=== PATIENT | female | born 1960 | race Caucasian/White ===

== ENCOUNTER → 2017-02-10 | Outpatient (REF) | LOC: WSOH 08:00 | DX: Z02.89 Encounter for other administrative examinations (principal) ==

== ENCOUNTER → 2017-09-07 | Outpatient (CLI) | payer BC | LOC: MC.RAD 08:19 | DX: Z12.31 Encounter for screening mammogram for malignant neoplasm of breast (principal) ==

== ENCOUNTER → 2018-03-29 | Outpatient (CLI) | payer BC | LOC: COL.RAD 12:14 | DX: R16.0 Hepatomegaly, not elsewhere classified (principal) | CPT/HCPCS: A9585 ==

== ENCOUNTER → 2019-10-12 | Outpatient (CLI) | payer BC | LOC: MC.RAD 10:11 | DX: Z12.31 Encounter for screening mammogram for malignant neoplasm of breast (principal) ==

== ENCOUNTER 2020-01-26 14:45 | Outpatient (RCR) | payer BC | END 2020-03-21 | disposition home or self-care (01) | LOC: MKS.ESL.OT | DX: M65.331 Trigger finger, right middle finger (principal); G56.01 Carpal tunnel syndrome, right upper limb ==

== ENCOUNTER → 2020-10-16 | Outpatient (CLI) | payer SELFPAY | LOC: MC.RAD 13:35 | DX: Z12.31 Encounter for screening mammogram for malignant neoplasm of breast (principal) ==

== ENCOUNTER 2021-03-22 09:00 | Outpatient (RCR) | payer BC | END 2021-03-24 | disposition still patient (30) | LOC: WSOT | DX: G56.01 Carpal tunnel syndrome, right upper limb (principal); M65.331 Trigger finger, right middle finger ==

== ENCOUNTER 2021-04-30 09:00 | Outpatient (RCR) | payer BC | END 2021-06-24 | disposition home or self-care (01) | LOC: WSOT | DX: Z47.89 Encounter for other orthopedic aftercare (principal); M65.331 Trigger finger, right middle finger ==

== ENCOUNTER 2021-06-14 09:30 | Outpatient (RCR) | payer BC | END 2021-08-14 | disposition home or self-care (01) | LOC: PT.GENESIS | DX: M22.42 Chondromalacia patellae, left knee (principal) ==

== ENCOUNTER → 2021-10-18 | Outpatient (CLI) | payer BC | LOC: MC.RAD 08:58 | DX: Z12.31 Encounter for screening mammogram for malignant neoplasm of breast (principal) ==

== ENCOUNTER → 2022-12-04 | Outpatient (CLI) | payer OTHER | LOC: MC.RAD 08:28 | DX: Z12.31 Encounter for screening mammogram for malignant neoplasm of breast (principal) ==

== ENCOUNTER → 2024-01-20 | Outpatient (CLI) | payer OTHER | LOC: MC.RAD 10:05 | DX: Z12.31 Encounter for screening mammogram for malignant neoplasm of breast (principal); N64.89 Other specified disorders of breast ==

== ENCOUNTER → 2024-01-25 | Outpatient (CLI) | payer OTHER | LOC: MC.RAD 07:00 | DX: N64.89 Other specified disorders of breast (principal) ==

== ENCOUNTER 2024-08-08 08:58 | Day surgery (SDC) | payer OTHER ==
[~2024-08-08] VITALS: Ht 162.6 cm; Wt 74.4 kg
[~2024-08-08 08:58] MED LIST: LR 1,000 ML IV SCH; Ondansetron 4 MG/2 ML VIAL IV PRN
[2024-08-08 09:52] VITALS: BP 122/78; PULSE 51; TEMP 97.2
--- NOTE | 2024-08-08 10:00 | NUR ---
Pt arrived with ; bowels WNL for the procedure; VSS and RR even and unlabored; pt is on no medications; reviewed meds/pharmacy/alleriges/history and updated; reviewed and signed procedure consent, no questions; to place IV and await procedure.
[2024-08-08] MEDS ORDERED: Lidocaine PF 2% (20 MG/ML) 5 ML VIAL ONE (10:24)
[2024-08-08] MEDS ORDERED: Glycopyrrolate 0.2 MG/ML 1 ML VIAL ONE (10:24)
[2024-08-08 11:45] VITALS: BP 101/67; PULSE 61
[2024-08-08 12:00] VITALS: BP 125/99; PULSE 41
[2024-08-08 12:15] VITALS: BP 134/68; PULSE 39
== END 2024-08-08 12:51 | disposition home or self-care (01) ==
LOC: SDCO 08:58
DX: Z12.11 Encounter for screening for malignant neoplasm of colon (principal); K51.40 Inflammatory polyps of colon without complications; K55.20 Angiodysplasia of colon without hemorrhage; K64.0 First degree hemorrhoids; E66.9 Obesity, unspecified
CPT/HCPCS: J2704; J7120